=== PATIENT | female | born 1970 | race Caucasian/White ===

== ENCOUNTER 2017-01-24 16:38 | Inpatient (IN) | payer BC ==
[~2017-01-24] VITALS: Ht 172.7 cm; Wt 74.5 kg
[2017-01-24 16:42] VITALS: BP 162/93; PULSE 97; RESP 20; TEMP 97.8; O2SAT 100
--- NOTE | 2017-01-24 16:58 | PD ---
HPI Chief Complaint: Back/ Neck Pain or Injury Time Seen by Provider: 16:48 Travel History International Travel<30 days: No Contact w/Intl Traveler<30days: No Traveled to known affect area: No History of Present Illness HPI The patient is a 46-year-old female who presents emergency department for back pain. Patient has a history of increasing back pain and left lower aspect that radiates down the left lower extremity to left great toe. The patient has been treated on an outpatient basis with a Medrol Dosepak 2, finished her last Medrol Dosepak several days ago. However, she has increasing left lower extremity pain, now notes weakness to left lower extremity with difficulty ambulating. The patient also notes intermittent episodes of urinary incontinence, she denies any diarrhea or fecal incontinence. The patient had an MRI performed an outpatient basis which revealed a herniated disc with some nerve root compression and compression on the thecal sac. The patient was referred to the emergency department for further evaluation by neurosurgery. The patient's after venous he plans on possible surgery tomorrow morning. He requests the patient be admitted to the medical service and nothing by mouth after midnight. The patient denies any right lower extremity weakness or numbness. She denies any nausea, vomiting, or abdominal pain. PFSH Past Medical History Narrative Medical Asthma Respiratory: Yes (ASTHMA) Past Surgical History Narrative Surgical section Social History Tobacco Use: No Allergies-Medications (Allergen,Severity, Reaction): Coded Allergies: No Known Allergies (Unverified , 01/24/17) Reported Meds & Prescriptions Reported Meds & Active Scripts Active Reported Ventolin Hfa 18 GM Inh (Albuterol Sulfate) 90 Mcg/Act Aer 1 Puff INH Q4H PRN Review of Systems Except as stated in HPI: all other systems reviewed are Neg Genitourinary: Positive: Incontinence Musculoskeletal: Positive: Weakness Neurologic: Positive: Paresthesia, Sensory Disturbance Physical Exam Narrative GENERAL: Awake, alert, pleasant 46-year-old female who appears her stated age and appears in moderate discomfort. SKIN: Focused skin assessment warm/dry. HEAD: Atraumatic. Normocephalic. EYES: Pupils equal and round. No scleral icterus. No injection or drainage. ENT: No nasal bleeding or discharge. Mucous membranes pink and moist. NECK: Trachea midline. No JVD. CARDIOVASCULAR: Regular rate and rhythm. No murmur appreciated. RESPIRATORY: No accessory muscle use. Clear to auscultation. Breath sounds equal bilaterally. GASTROINTESTINAL: Abdomen soft, non-tender, nondistended. Back: No CVA tenderness. MUSCULOSKELETAL: No obvious deformities. Mild weakness noted with flexion of the hip, extension of the knee, plantar flexion, dorsiflexion, and flexion the left great toe when compared to the right. Positive distal pulses. NEUROLOGICAL: Awake and alert. No obvious cranial nerve deficits. Motor grossly within normal limits. Normal speech. Knee DTRs are 2+ and symmetric. Ankle DTRs are 2+ and symmetric. No clonus. Babinski downward. Sensation is symmetric bilaterally. PSYCHIATRIC: Appropriate mood and affect; insight and judgment normal. Data Data Last Documented VS Vital Signs Date Time Temp Pulse Resp B/P Pulse Ox O2 Delivery O2 Flow Rate FiO2 01/24/17 16:55 20 01/24/17 16:42 97.8 97 162/93 100 Room Air Orders Complete Blood Count With Diff (01/24/17 16:58) Basic Metabolic Panel (Bmp) (01/24/17 16:58) Act Partial Throm Time (Ptt) (01/24/17 16:58) Prothrombin Time / Inr (Pt) (01/24/17 16:58) Urinalysis - C+S If Indicated (01/24/17 16:58) Electrocardiogram (01/24/17 ) Morphine Inj (Morphine Inj) (01/24/17 17:00) Ondansetron Inj (Zofran Inj) (01/24/17 17:00) Ns + Kcl 20 Meq Inj (Ns + Kcl 20 Meq Inj (01/24/17 17:00) Type And Screen (01/24/17 17:03) Admit To Inpatient (01/24/17 ) Code Status (01/24/17 17:05) Vital Signs (Adult) Q4H (01/24/17 17:05) Activity Bed Rest With Brp (01/24/17 17:05) Sodium Chloride 0.9% Flush (Ns Flush) (01/24/17 17:15) Sodium Chloride 0.9% Flush (Ns Flush) (01/24/17 21:00) Acetaminophen (Tylenol) (01/24/17 18:00) Ondansetron Inj (Zofran Inj) (01/24/17 18:00) Basic Metabolic Panel (Bmp) (01/25/17 06:00) Comprehensive Metabolic Panel (01/25/17 06:00) Pt Request For Service (01/24/17 17:05) Case Management Consult (01/24/17 17:05) Scd Bilateral/Knee High JENNIFER.BID (01/24/17 17:05) Win Bilateral/Knee High JENNIFER.QSHIFT (01/24/17 17:05) Acetaminophen (Tylenol) (01/24/17 18:00) Acetamin-Hydrocod 325-5 Mg ([place] 5-325 (01/24/17 18:00) Acetamin-Hydrocod 325-10 Mg ([place] 10-32 (01/24/17 18:00) Hydromorphone Pf Inj (Dilaudid Pf Inj) (01/24/17 18:00) Naloxone Inj (Narcan Inj) (01/24/17 17:15) Inpatient Certification (01/24/17 ) Dexamethasone Inj (Decadron Inj) (01/24/17 21:00) Albuterol-Ipratropium Neb (Duoneb Neb) (01/24/17 18:00) Enalaprilat Inj (Vasotec Inj) (01/24/17 18:00) Diet Heart Healthy (01/24/17 Dinner) Consult Neurosurgery (01/24/17 ) Admit Order (Ed Use Only) (01/24/17 17:21) Labs Laboratory Tests Test 01/24/17 01/24/17 17:00 17:10 Blood Type O NEGATIVE Antibody Screen NEGATIVE Blood Bank Comment White Blood Count 9.9 TH/MM3 Red Blood Count 4.44 MIL/MM3 Hemoglobin 13.1 GM/DL Hematocrit 39.9 % Mean Corpuscular Volume 89.8 FL Mean Corpuscular Hemoglobin 29.4 PG Mean Corpuscular Hemoglobin 32.7 % Concent Red Cell Distribution Width 12.9 % Platelet Count 259 TH/MM3 Mean Platelet Volume 9.9 FL Neutrophils (%) (Auto) 67.2 % Lymphocytes (%) (Auto) 20.4 % Monocytes (%) (Auto) 7.2 % Eosinophils (%) (Auto) 4.6 % Basophils (%) (Auto) 0.6 % Neutrophils # (Auto) 6.7 TH/MM3 Lymphocytes # (Auto) 2.0 TH/MM3 Monocytes # (Auto) 0.7 TH/MM3 Eosinophils # (Auto) 0.5 TH/MM3 Basophils # (Auto) 0.1 TH/MM3 CBC Comment DIFF FINAL Differential Comment Prothrombin Time 11.0 SEC Prothromb Time International 1.0 RATIO Ratio Activated Partial 25.9 SEC Thromboplast Time Sodium Level 138 MEQ/L Potassium Level 3.9 MEQ/L Chloride Level 103 MEQ/L Carbon Dioxide Level 26.2 MEQ/L Anion Gap 9 MEQ/L Blood Urea Nitrogen 11 MG/DL Creatinine 0.75 MG/DL Estimat Glomerular Filtration 83 ML/MIN Rate Random Glucose 103 MG/DL Calcium Level 9.0 MG/DL [facility] Medical Decision Making Medical Screen Exam Complete: Yes Emergency Medical Condition: Yes Medical Record Reviewed: Yes Interpretation(s) MRI of the lumbar spine performed on January 17, 2017 reveals degenerative changes which are most significant at the level of L4-L5 with there is a focal posterior foraminal disc extrusion causing mass effect upon the adjacent thecal sac and contributing to a mild narrowing of the left neural foramina. MRI the left hip reveals unremarkable exam except for asymmetry in the size of the performance muscles. There is no significant intra-muscular fatty atrophy on the right side and no obvious edema on the left but there is asymmetric size. It is of uncertain etiology. Minimal increased T2 signal in a longitudinal fashion within the lateral aspect of the iliopsoas muscle could be a minimal sprain. Laboratory Tests Test 01/24/17 01/24/17 17:00 17:10 Blood Type O NEGATIVE Antibody Screen NEGATIVE Blood Bank Comment White Blood Count 9.9 TH/MM3 Red Blood Count 4.44 MIL/MM3 Hemoglobin 13.1 GM/DL Hematocrit 39.9 % Mean Corpuscular Volume 89.8 FL Mean Corpuscular Hemoglobin 29.4 PG Mean Corpuscular Hemoglobin 32.7 % Concent Red Cell Distribution Width 12.9 % Platelet Count 259 TH/MM3 Mean Platelet Volume 9.9 FL Neutrophils (%) (Auto) 67.2 % Lymphocytes (%) (Auto) 20.4 % Monocytes (%) (Auto) 7.2 % Eosinophils (%) (Auto) 4.6 % Basophils (%) (Auto) 0.6 % Neutrophils # (Auto) 6.7 TH/MM3 Lymphocytes # (Auto) 2.0 TH/MM3 Monocytes # (Auto) 0.7 TH/MM3 Eosinophils # (Auto) 0.5 TH/MM3 Basophils # (Auto) 0.1 TH/MM3 CBC Comment DIFF FINAL Differential Comment Prothrombin Time 11.0 SEC Prothromb Time International 1.0 RATIO Ratio Activated Partial 25.9 SEC Thromboplast Time Sodium Level 138 MEQ/L Potassium Level 3.9 MEQ/L Chloride Level 103 MEQ/L Carbon Dioxide Level 26.2 MEQ/L Anion Gap 9 MEQ/L Blood Urea Nitrogen 11 MG/DL Creatinine 0.75 MG/DL Estimat Glomerular Filtration 83 ML/MIN Rate Random Glucose 103 MG/DL Calcium Level 9.0 MG/DL Differential Diagnosis Differential diagnosis includes herniated disc, cauda equina, radiculopathy, spinal stenosis. Narrative Course IV was established, labs are drawn and sent, the patient was placed on cardiac telemetry monitoring and continuous pulse oximetry monitoring. The patient was administered morphine, Zofran, placed on IV fluids. I discussed the patient with Dr. Bella and the on-call medical service, Dr. Ramirez. The patient will be kept nothing by mouth, consult will be placed to neurosurgery, the patient's pain will be addressed. The patient will be admitted. The patient has failed outpatient therapy with Medrol Dosepak 2. Physician Communication Physician Communication I discussed the patient with Dr. Bella and Dr. Ramirez. The patient has failed outpatient therapy with Medrol Dosepak 2 and will be admitted. Diagnosis Primary Impression: Lumbar back pain with radiculopathy affecting left lower extremity Condition: Stable Omi Soriano MD January 24, 2017 16:58
[2017-01-24] MEDS ORDERED: ONDANSETRON HCL 4 MG/2 ML VIAL IV PUSH ONE (17:00)
[2017-01-24] MEDS ORDERED: MORPHINE SULFATE 4 MG/ML INJ IV PUSH ONE (17:00)
[2017-01-24] MEDS ORDERED: SODIUM CHLORIDE 0.9% FLUSH 10 ML FLUSH IV FLUSH PRN (17:15)
[2017-01-24] MEDS ORDERED: NALOXONE HCL 0.4 MG/ML AMP IV PRN (17:15)
[2017-01-24] MEDS ORDERED: VENTAER INH (17:24)
[2017-01-24] MEDS: NS + KCL 20 MEQ INJ 1,000 ML IV SCH (17:37)
--- NOTE | 2017-01-24 17:47 | HHI.HP ---
[facility] Service [facility] Primary Care Physician Non-Staff Admission Diagnosis radiculopathy Diagnoses: (1) Lumbar back pain with radiculopathy affecting left lower extremity (2) Elevated BP without diagnosis of hypertension Chief Complaint: Low back pain associated as well with left lower extremity Travel History International Travel<30 Days: No Contact w/Intl Traveler <30 Da: No Traveled to Known Affected Are: No History of Present Illness 46-year-old female with a history of asthma come to the ED for evaluation of worsening low back pain with radiation to left lower extremity. Patient was recently diagnosed with acute low back pain in November 2016 and denies any trauma , for which she was treated conservatively with muscle relaxant and physical therapy however without any significant improvement. Patient was also treated with Medrol Dosepak x 2 and completed the treatment several day ago without any improvement.She reports increasing LLE pain associated with difficulty with ambulating as well as intermittent urinary incontinence over the past 48HRS. The pain is currently rated 10/10 in intensity. She was sent by her PCP for a MRI on 01/17/17 which revealed a herniated disc with some nerve root compression and compression on the thecal sac. Review of Systems Other 12 systems reviewed and are negative except for the ones mentioned in the history of present illness Past Family Social History Past Medical History Asthma Past Surgical History 1 Reported Medications Medrol pack Allergies: Coded Allergies: No Known Allergies (Unverified , 01/24/17) Family History Father had diabetes type 2 Mother had CHF Social History Patient denies tobacco alcohol or illicit drug intake Physical Exam Vital Signs Vital Signs Date Time Temp Pulse Resp B/P Pulse Ox O2 Delivery O2 Flow Rate FiO2 01/24/17 16:55 20 01/24/17 16:42 97.8 97 20 162/93 100 Room Air Physical Exam GENERAL: This is a well-nourished, well-developed patient, in no apparent distress. SKIN: No rashes, ecchymoses or lesions. Cool and dry. HEAD: Atraumatic. Normocephalic. No temporal or scalp tenderness. EYES: Pupils equal round and reactive. Extraocular motions intact. No scleral icterus. No injection or drainage. ENT: Nose without bleeding, purulent drainage or septal hematoma. Throat without erythema, tonsillar hypertrophy or exudate. Uvula midline. Airway patent. NECK: Trachea midline. No JVD or lymphadenopathy. Supple, nontender, no meningeal signs. CARDIOVASCULAR: Regular rate and rhythm without murmurs, gallops, or rubs. RESPIRATORY: Clear to auscultation. Breath sounds equal bilaterally. No wheezes , rales, or rhonchi. GASTROINTESTINAL: Abdomen soft, non-tender, nondistended. No hepato-splenomegaly , or palpable masses. No guarding. MUSCULOSKELETAL: Extremities without clubbing, cyanosis, or edema. No joint tenderness, effusion, or edema noted. No calf tenderness. Negative Homans sign bilaterally.Back TTP; Limited ROM LLE NEUROLOGICAL: Awake and alert. Cranial nerves II through XII intact. Motor and sensory grossly within normal limits. Five out of 5 muscle strength in all muscle groups. Normal speech. Assessment and Plan Problem List: (1) Lumbar back pain with radiculopathy affecting left lower extremity ICD Code: M54.17 Status: Acute (2) Elevated BP without diagnosis of hypertension ICD Code: R03.0 Status: Acute Assessment and Plan 46-year-old female with Lumbar back pain with radiculopathy affecting left lower extremity Outside MRI Lumbar 01/17/17 which revealed a herniated disc with some nerve root compression and compression on the thecal sac Neurosurgery consultation and plan for possible laminectomy tomorrow 01/25/17 Pain management accordingly, nothing by mouth after midnight Start Decadron 4 mg IV every 6 hourly Elevated BP without diagnosis of hypertension Start Vasotec when necessary History of asthma, chronic No exacerbation and treat with DuoNeb when necessary DVT prophylaxis: Bilateral SCDs Code Status Full code Discussed Condition With Patient, ED physician Physician Certification 2 Midnight Certification Type: Admission for Inpatient Services Order for Inpatient Services The services are ordered in accordance with Medicare regulations or non- Medicare payer requirements, as applicable. In the case of services not specified as inpatient-only, they are appropriately provided as inpatient services in accordance with the 2-midnight benchmark. Estimated LOS (days): 2 days is the estimated time the patient will need to remain in the hospital, assuming treatment plan goals are met and no additional complications. Post-Hospital Plan: Not yet determined Maged Ramirez MD January 24, 2017 17:47
[2017-01-24 17:49] LABS: AUTOMATED NEUTROPHIL # 6.7 TH/MM3 (1.8-7.7); BASOPHIL # 0.1 TH/MM3 (0-0.2); BASOPHIL % 0.6 % (0.0-2.0); EOSINOPHIL # 0.5 TH/MM3 (0-0.4); EOSINOPHIL % 4.6 % (0.0-4.0); HEMATOCRIT 39.9 % (35.0-46.0); HEMO FLAGS DIFF FINAL; LYMPH % 20.4 % (9.0-44.0); MEAN CELL VOLUME 89.8 FL (80.0-100.0); MEAN CORPUSCULAR HEMOGLOBIN 29.4 PG (27.0-34.0); MEAN CORPUSCULAR HGB CONC 32.7 % (32.0-36.0); MONO % 7.2 % (0.0-8.0); NEUT % 67.2 % (16.0-70.0); PLATELET COUNT 259 TH/MM3 (150-450); RED BLOOD COUNT 4.44 MIL/MM3 (4.00-5.30); RED CELL DISTRIBUTION WIDTH 12.9 % (11.6-17.2); WHITE BLOOD COUNT 9.9 TH/MM3 (4.0-11.0)
[2017-01-24 17:53] LABS: APTT (PATIENT) 25.9 SEC (24.3-30.1)
[2017-01-24] MEDS ORDERED: ONDANSETRON HCL 4 MG/2 ML VIAL IVP PRN (18:00)
[2017-01-24] MEDS ORDERED: ACETAMINOPHEN/HYDROcodone 325 MG/10 MG TAB PO PRN (18:00)
[2017-01-24] MEDS ORDERED: RESP: ALBUTEROL 2.5 MG/IPRATROPIUM 0.5 MG NEB (PRN) NEB (18:00)
[2017-01-24] MEDS ORDERED: ACETAMINOPHEN 325 MG TAB PO PRN ×2 (18:00)
[2017-01-24] MEDS ORDERED: DOCUSATE SODIUM 50 MG/SENNA 8.6 MG TAB PO PRN (18:00)
[2017-01-24] MEDS ORDERED: ENALAPRILAT 1.25 MG/ML VIAL IV PUSH PRN (18:00)
[2017-01-24] MEDS ORDERED: ACETAMINOPHEN/HYDROcodone 325 MG/5 MG TAB PO PRN (18:00)
[2017-01-24] MEDS ORDERED: HYDROmorphone HCL PF 1 MG/ML VIAL IV PRN (18:00)
[2017-01-24 18:14] LABS: BICARBONATE 26.2 MEQ/L (21.0-32.0); POTASSIUM 3.9 MEQ/L (3.5-5.1)
[2017-01-24 19:15] VITALS: BP 139/95; PULSE 105; RESP 18; TEMP 96.9; O2SAT 97
[2017-01-24] MEDS: DEXAMETHASONE SOD PHOS 4 MG/ML VIAL IV PUSH SCH (20:01)
[2017-01-24] MEDS ORDERED: SODIUM CHLORIDE 0.9% FLUSH 10 ML FLUSH IV FLUSH SCH (21:00)
[2017-01-24] MEDS ORDERED: LORazepam 2 MG/ML VIAL IV PUSH ONE (22:00)
[2017-01-24 22:28] LABS: BACTERIA, URINE OCC /hpf; BLOOD, URINE NEG (NEG); COMMENT (UR) CULT NOT INDICATED; CULTURE IF INDICATED CULT NOT INDICATED; GLUCOSE,URINE NEG (NEG); KETONE, URINE NEG (NEG); MUCUS URINE FEW /lpf (OCC); NITRITE,URINE NEG (NEG); PH, URINE 5.5 (5.0-8.5); SQUAMOUS EPITHELIAL CELL URINE 2 /hpf (0-5); URINE COLOR YELLOW (YELLW/STRAW)
[2017-01-24] MEDS: MORPHINE SULFATE 4 MG/ML INJ IV PUSH PRN (22:37)
[2017-01-25] MEDS: DEXAMETHASONE SOD PHOS 4 MG/ML VIAL IV PUSH SCH ×4 (00:52→17:33)
[2017-01-25] MEDS: MORPHINE SULFATE 4 MG/ML INJ IV PUSH PRN (03:58)
[2017-01-25 04:01] VITALS: BP 134/88; PULSE 99; RESP 18; TEMP 97.9; O2SAT 98
[2017-01-25] MEDS: NS + KCL 20 MEQ INJ 1,000 ML IV SCH ×2 (04:07→15:40)
[2017-01-25] MEDS ORDERED: METOPROLOL TARTRATE 25 MG TAB PO PRN (04:30)
[2017-01-25] MEDS ORDERED: LACTATED RINGER'S 1000 ML IV PRN (04:30)
[2017-01-25] MEDS ORDERED: POVIDONE IODINE 5% (ANTISEPSIS KIT) 4 APPLICATIONS EACH NARE PRN (04:30)
[2017-01-25] MEDS ORDERED: INSULIN HUMAN REGULAR 1,000 UNITS/10 ML VIAL SQ PRN (04:30)
[2017-01-25] MEDS ORDERED: CHLORHEXIDINE GLUCONATE 2 % 1 PACK (2 CLOTHS) TOPICAL PRN (04:30)
[2017-01-25] MEDS ORDERED: SODIUM CHLORID 0.9% 500 ML IV PRN (04:30)
[2017-01-25] MEDS ORDERED: methylPREDNISolone ACETATE 40 MG/ML VIAL ONE (07:25)
[2017-01-25] MEDS ORDERED: THROMBIN (TOPICAL) 5,000 UNIT VIAL ONE (07:25)
[2017-01-25] MEDS ORDERED: GENTAMICIN SULFATE 80 MG/2 ML VIAL ONE (07:25)
[2017-01-25] MEDS ORDERED: ceFAZolin 2 GM PREMIX 50 ML ONE (07:25)
[2017-01-25] MEDS ORDERED: GELFOAM SIZE 100 ONE (07:25)
[2017-01-25] MEDS ORDERED: BUPIVACAINE/EPINEPHRINE 0.5% 50 ML VIAL ONE (07:26)
[2017-01-25 07:56] LABS: ALKALINE PHOSPHATASE 48 U/L (45-117); ALT (GPT) 20 U/L (10-53); ANION GAP 7 MEQ/L (5-15); AST (GOT) 13 U/L (15-37); BICARBONATE 27.4 MEQ/L (21.0-32.0); BLOOD UREA NITROGEN 12 MG/DL (7-18); CHLORIDE 103 MEQ/L (98-107); GLOMERULAR FILTRATION RATE 88 ML/MIN (>89); POTASSIUM 4.5 MEQ/L (3.5-5.1); SODIUM (NA) 137 MEQ/L (136-145); TOTAL BILIRUBIN ADULT 0.6 MG/DL (0.2-1.0)
[2017-01-25 08:00] VITALS: BP 157/95; PULSE 88; RESP 19; TEMP 95.6; O2SAT 100
--- NOTE | 2017-01-25 09:26 | HHI.PR ---
Subjective Remarks Follow-up lumbar radiculopathy affecting lower extremity 01/25/17-patient seen and examined, reports some improvement of left lower extremity. Currently nothing by mouth pending laminectomy today by neurosurgery. Objective Vitals Vital Signs Date Time Temp Pulse Resp B/P Pulse Ox O2 Delivery O2 Flow Rate FiO2 01/25/17 08:00 95.6 88 19 157/95 100 01/25/17 04:04 18 01/25/17 04:01 97.9 99 18 134/88 98 01/24/17 19:15 96.9 105 18 139/95 97 01/24/17 19:00 18 01/24/17 16:55 20 01/24/17 16:42 97.8 97 20 162/93 100 Room Air I/O 01/24/17 01/24/17 01/24/17 01/25/17 01/25/17 01/25/17 07:00 15:00 23:00 07:00 15:00 23:00 Intake Total 453 ml 842 ml Balance 453 ml 842 ml Intake Oral 240 ml 240 ml IV Total 213 ml 602 ml # Voids 1 2 # Bowel Movements 0 0 Result Diagram: 01/24/17 1710 01/25/17 0539 Objective Remarks GENERAL: NAD SKIN: Warm and dry. HEAD: Normocephalic. EYES: No scleral icterus. No injection or drainage. NECK: Supple, trachea midline. No JVD or lymphadenopathy. CARDIOVASCULAR: Regular rate and rhythm without murmurs, gallops, or rubs. RESPIRATORY: Breath sounds equal bilaterally. No accessory muscle use. GASTROINTESTINAL: Abdomen soft, non-tender, nondistended. MUSCULOSKELETAL: No cyanosis, or edema. limited ROM LLE BACK: Nontender without obvious deformity. No CVA tenderness. A/P Problem List: (1) Lumbar back pain with radiculopathy affecting left lower extremity ICD Code: M54.17 Status: Acute (2) Elevated BP without diagnosis of hypertension ICD Code: R03.0 Status: Acute Assessment and Plan 46-year-old female with Lumbar back pain with radiculopathy affecting left lower extremity Outside MRI Lumbar 01/17/17 which revealed a herniated disc with some nerve root compression and compression on the thecal sac Neurosurgery consultation appreciated and plan for laminectomy today 01/25/17 Pain management accordingly, nothing by mouth, IV fluid Continue Decadron 4 mg IV every 6 hourly Elevated BP without diagnosis of hypertension Continue Vasotec when necessary History of asthma, chronic No exacerbation and treat with DuoNeb when necessary DVT prophylaxis: Bilateral SCDs Maged Ramirez MD January 25, 2017 09:26
--- NOTE | 2017-01-25 09:26 | HHI.HP ---
HPI Service Neurosurgery Primary Care Physician Non-Staff Chief Complaint: Left foot numbness and weakness History of Present Illness This is a 46-year-old female with a history of asthma admitted from [place] ED for evaluation of worsening low back pain with radiation to left lower extremity. She developed back pain 3 months ago after vigorous excercising, and was diagnosed with a disk herniation.She denies any trauma. She was treated conservatively with muscle relaxant and physical therapy however without any significant improvement. Patient was also treated with Medrol Dosepak x 2 and completed the treatment several day ago without any improvement.She reports increasing LLE pain associated with difficulty with ambulating as her left foot has becoma weak, as well as intermittent urinary incontinence over the past 48HRS. The pain is currently rated 10/10 in intensity. She was sent by her PCP for a MRI on 01/17/17 which revealed a very large herniated disc with a disk exrtrusion, and nerve root compression and compression on the thecal sac. Neurosurgical consultation was requested. Past Family Social History Allergies: Coded Allergies: No Known Allergies (Unverified , 01/24/17) Past Medical History Asthma Past Surgical History 1 Reported Medications Medrol pack Active Ordered Medications Current Medications Morphine Sulfate (Morphine Inj) 4 mg ONCE ONCE IV PUSH Last administered on 17:11; Start 01/24/17 at 17:00; Stop 01/24/17 at 17:01; Status DC Ondansetron HCl 4 mg 4 mg ONCE ONCE IV PUSH Last administered on 01/24/17 17: 09; Start 01/24/17 at 17:00; Stop 01/24/17 at 17:01; Status DC Potassium Chloride/Sodium Chloride (NS + KCl 20 Meq Inj) 1,000 ml @ 100 mls/hr Q10H IV Last administered on 01/25/17 04:07; Start 01/24/17 at 17:00 Sodium Chloride (NS Flush) 2 ml UNSCH PRN IV FLUSH FLUSH AFTER USING IV ACCESS ; Start 01/24/17 at 17:15 Sodium Chloride (NS Flush) 2 ml BID IV FLUSH ; Start 01/24/17 at 21:00 Acetaminophen (Tylenol) 650 mg Q4H PRN PO TEMP > 100.4; Start 01/24/17 at 18:00 Ondansetron HCl (Zofran Inj) 4 mg Q6H PRN IVP NAUSEA OR VOMITING Last administered on 01/24/17 19:52; Start 01/24/17 at 18:00 Acetaminophen (Tylenol) 650 mg Q6H PRN PO PAIN SCALE 1 TO 2; Start 01/24/17 at 18:00 Acetaminophen/ Hydrocodone Bitart (Beatrice 5-325 Mg) 1 tab Q4H PRN PO PAIN SCALE 3 TO 5; Start 01/24/17 at 18:00 Acetaminophen/ Hydrocodone Bitart (Beatrice 10-325 Mg) 1 tab Q4H PRN PO PAIN SCALE 6 TO 10; Start 01/24/17 at 18:00 Hydromorphone HCl (Dilaudid Pf Inj) 1 mg Q3H PRN IV BREAKTHROUGH PAIN Last administered on 01/24/17 18:26; Start 01/24/17 at 18:00; Stop 01/24/17 at 21:11 ; Status DC Naloxone HCl (Narcan Inj) 0.4 mg UNSCH PRN IV SEE LABEL COMMENTS; Start at 17:15 Dexamethasone Sodium Phosphate (Decadron Inj) 4 mg Q6HR IV PUSH Last administered on 01/25/17 06:08; Start 01/24/17 at 21:00 Albuterol/ Ipratropium (Duoneb Neb) 1 ampule Q2HR NEB PRN NEB SHORTNESS OF BREATH; Start 01/24/17 at 18:00 Enalaprilat (Vasotec Inj) 1.25 mg Q6H PRN IV PUSH SBP>160, DBP>90; Start 01/24 at 18:00 Senna/Docusate Sodium (Ann-Marie-Colace) 1 tab BID PRN PO CONSTIPATION; Start at 18:00 Morphine Sulfate (Morphine Inj) 2 mg Q3H PRN IV PUSH breakthrough pain or if npo Last administered on 01/25/17 03:58; Start 01/24/17 at 21:15 Lorazepam 1 mg 1 mg ONCE ONCE IV PUSH Last administered on 01/24/17 23:23; Start 01/24/17 at 22:00; Stop 01/24/17 at 22:01; Status DC Lactated Ringer's 1,000 ml @ 30 mls/hr Q24H PRN IV SEE LABEL COMMENTS; Start at 04:30; Stop 01/28/17 at 04:29 Sodium Chloride (NS 500 ml Inj) 500 ml @ 30 mls/hr [id number] PRN IV SEE LABEL COMMENTS; Start 01/25/17 at 04:30; Stop 01/28/17 at 04:29 Metoprolol Tartrate (Lopressor) 25 mg PROJECT MANAGER RETAIL PRN PO SEE LABEL COMMENTS; Start 01/25/17 at 04:30; Stop 01/28/17 at 04:29 Povidone Iodine (Betadine 5% Antisepsis Kit) 1 applic PROJECT MANAGER RETAIL PRN EACH NARE SEE LABEL COMMENTS; Start 01/25/17 at 04:30; Stop 01/28/17 at 04:29 Chlorhexidine Gluconate (Chlorhexidine 2% Cloth) 3 pack PROJECT MANAGER RETAIL PRN TOPICAL SEE LABEL COMMENTS; Start 01/25/17 at 04:30; Stop 01/28/17 at 04:29 Insulin Human Regular (NovoLIN R INJ) See Protocol Table ... PROJECT MANAGER RETAIL PRN SQ SEE PROTOCOL TABLE; Start 01/25/17 at 04:30; Stop 01/28/17 at 04:29 Thrombin 72821 units 10,000 units STK-MED ONCE .ROUTE ; Start 01/25/17 at 07:25 ; Stop 01/25/17 at 07:26; Status DC Cefazolin Sodium/ Dextrose (Ancef 2 Gm Premix) 50 ml @ As Directed STK-MED ONCE .ROUTE ; Start 01/25/17 at 07:25; Stop 01/25/17 at 07:26; Status DC Methylprednisolone Acetate (Depo-Medrol Inj) 40 mg STK-MED ONCE .ROUTE ; Start 01/25/17 at 07:25; Stop 01/25/17 at 07:26; Status DC Gelatin (Gelfoam 100 Top) 1 foam STK-MED ONCE .ROUTE ; Start 01/25/17 at 07:25; Stop 01/25/17 at 07:26; Status DC Gentamicin Sulfate (Gentamicin Inj) 240 mg STK-MED ONCE .ROUTE ; Start 01/25/17 at 07:25; Stop 01/25/17 at 07:26; Status DC Bupivacaine HCl/ Epinephrine Bitart (Sensorcaine-Epi 0.5% 50 ml Inj) 50 ml STK- MED ONCE .ROUTE ; Start 01/25/17 at 07:26; Stop 01/25/17 at 07:27; Status DC Family History Father had diabetes type 2 Mother had CHF Social History Patient denies tobacco alcohol or illicit drug intake Physical Exam Vital Signs Vital Signs Date Time Temp Pulse Resp B/P Pulse Ox O2 Delivery O2 Flow Rate FiO2 01/25/17 04:04 18 01/25/17 04:01 97.9 99 18 134/88 98 01/24/17 19:15 96.9 105 18 139/95 97 01/24/17 19:00 18 01/24/17 16:55 20 01/24/17 16:42 97.8 97 20 162/93 100 Room Air Laboratory Laboratory Tests Test 01/24/17 01/24/17 01/24/17 01/25/17 17:00 17:10 21:17 05:39 Blood Type O NEGATIVE Antibody Screen NEGATIVE Blood Bank Comment White Blood Count 9.9 Red Blood Count 4.44 Hemoglobin 13.1 Hematocrit 39.9 Mean Corpuscular Volume 89.8 Mean Corpuscular Hemoglobin 29.4 Mean Corpuscular Hemoglobin 32.7 Concent Red Cell Distribution Width 12.9 Platelet Count 259 Mean Platelet Volume 9.9 Neutrophils (%) (Auto) 67.2 Lymphocytes (%) (Auto) 20.4 Monocytes (%) (Auto) 7.2 Eosinophils (%) (Auto) 4.6 Basophils (%) (Auto) 0.6 Neutrophils # (Auto) 6.7 Lymphocytes # (Auto) 2.0 Monocytes # (Auto) 0.7 Eosinophils # (Auto) 0.5 Basophils # (Auto) 0.1 CBC Comment DIFF FINAL Differential Comment Prothrombin Time 11.0 Prothromb Time International 1.0 Ratio Activated Partial 25.9 Thromboplast Time Sodium Level 138 137 Potassium Level 3.9 4.5 Chloride Level 103 103 Carbon Dioxide Level 26.2 27.4 Anion Gap 9 7 Blood Urea Nitrogen 11 12 Creatinine 0.75 0.71 Estimat Glomerular Filtration 83 88 Rate Random Glucose 103 120 Calcium Level 9.0 9.1 Urine Color YELLOW Urine Turbidity CLEAR Urine pH 5.5 Urine Specific Sugar Run 1.012 Urine Protein NEG Urine Glucose (UA) NEG Urine Ketones NEG Urine Occult Blood NEG Urine Nitrite NEG Urine Bilirubin NEG Urine Urobilinogen LESS THAN 2.0 Urine Leukocyte Esterase NEG Urine WBC LESS THAN 1 Urine Squamous Epithelial 2 Cells Urine Bacteria OCC Urine Mucus FEW Microscopic Urinalysis Comment CULT NOT INDICATED Total Bilirubin 0.6 Aspartate Amino Transf 13 (AST/SGOT) Alanine Aminotransferase 20 (ALT/SGPT) Alkaline Phosphatase 48 Total Protein 7.5 Albumin 3.9 Result Diagram: 01/24/17 1710 01/25/17 0539 Imaging [facility] 01[facility]17 which revealed a large herniated disc with extrusion and nerve root compression and compression on the thecal sac Assessment and Plan Assessment and Plan (1) Lumbar back pain with radiculopathy affecting left lower extremity ICD Code: M54.17 Status: Acute (2) Elevated BP without diagnosis of hypertension ICD Code: R03.0 Status: Acute Attending Statement I had an extensive discussion with Ms Whitfield regarding her clinical and radiological findings. She suffers from extremely severe pain in his lumbosacral region with patricia evidence of a left L5 radiculopathy, which correlates with her large disk extrusion. Her MRI findings correlate with her clinical symptoms. She has failed to improve with conservative treatment including physical therapy, exercises, antiinflammatories and muscle relaxants, as well as steroids. She understands that a surgical procedure should be considered as a last resort. Unfortunately, her symptoms are getting worse and continue to affect her activities of daily living. I discussed with her the alternative of continuing nonsurgical treatment with further pain management and physical therapy, analgesics, and antiimflammatories , versus consideration to a surgical decompression with a left L4-5 hemilaminectomy, mesoofacetectomy, foraminotomy with microsurgical resection of the disk. . Using the patients radiologic studies, anatomical model(s) I have discussed the details of the surgical decompression including the [id number] procedure, its indications, alternatives, risks, and potential complications. Risks and potential complications include, but are not limited to, infection, blood loss, CSF leak, partial or complete loss of sight in one or both eyes, paresis, paralysis, permanent pain, hoarseness or difficulty swallowing, loss of bowel or bladder function, complications from anesthesia, blood clot, stroke , myocardial infarction, or even . Respiratory. pulmonary toilette, nasotracheal suction, and breathing treatments with nebulizers. PT and OT eval Nutrition. NPO Renal. monitor closely urine output, BUN and creatinine Endocrine. Monitor serial Acu checks and SSI for tight control ID monitor for signs of infection Protonix for stress ulcer prophylaxis Win hosángela and SCD's for DVT prophylaxis Chase Bella MD January 25, 2017 09:26
[2017-01-25] MEDS ORDERED: APREPITANT 40 MG CAP ONE (10:43)
[2017-01-25] MEDS ORDERED: FAMOTIDINE 20 MG/2 ML VIAL ONE (10:43)
[2017-01-25] MEDS ORDERED: MIDAZOLAM HCL 2 MG/2 ML VIAL ONE ×2 (12:09→12:26)
[2017-01-25] MEDS ORDERED: fentaNYL CITRATE 250 MCG/5 ML AMP ONE (12:26)
[2017-01-25] MEDS ORDERED: ARTIFICIAL TEARS OPTH OINT 3.5 APPLIC/3.5 GM TUBO ONE (12:26)
[2017-01-25] MEDS ORDERED: ACETAMINOPHEN 1000 MG/100 ML VIAL IV ONE (12:27)
[2017-01-25] MEDS ORDERED: VANCOMYCIN HCL 1000 MG VIAL ONE (12:55)
[2017-01-25] MEDS ORDERED: SODIUM CHLOR 0.9% 250 ML INJ 250 ML ONE (12:55)
[2017-01-25] MEDS ORDERED: SODIUM CHLORIDE 0.9% FLUSH 10 ML FLUSH IV FLUSH PRN (13:30)
[2017-01-25] MEDS ORDERED: ACETAMINOPHEN/HYDROcodone 325 MG/10 MG TAB PO PRN ×2 (13:30)
[2017-01-25] MEDS ORDERED: ACETAMINOPHEN 325 MG TAB PO PRN (13:30)
[2017-01-25] MEDS ORDERED: MORPHINE SULFATE 4 MG/ML INJ IV PUSH PRN ×2 (13:30)
--- NOTE | 2017-01-25 14:20 | EKG ---
Date Performed: 01/24/2017 Time Performed: 20:55:25 PTAGE: 46 years EKG: Sinus rhythm POSSIBLE RIGHT VENTRICULAR CONDUCTION DELAY BORDERLINE ECG NO PREVIOUS TRACING DOCTOR: Santo Storey Interpretating Date/Time 01/25/2017 14:17:37
--- NOTE | 2017-01-25 14:20 | EKG ---
Date Performed: 01/25/2017 Time Performed: 08:36:52 PTAGE: 46 years EKG: Sinus rhythm POSSIBLE RIGHT VENTRICULAR CONDUCTION DELAY BORDERLINE ECG PREVIOUS TRACING : 01/24/2017 20.55 Compared to prior tracing no significant change DOCTOR: Santo Storey Interpretating Date/Time 01/25/2017 14:17:32
[2017-01-25] MEDS ORDERED: PROPOFOL 200 MG/20 ML AMP IV ONE (14:25)
[2017-01-25] MEDS ORDERED: ePHEDrine/NS 25 MG/5 ML SYR IV ONE (14:25)
[2017-01-25] MEDS ORDERED: NEOSTIGMINE 3 MG/3 ML SYR IV ONE (14:26)
[2017-01-25] MEDS ORDERED: PHENYLEPH/NS 1000 MCG/10 ML SYR IV ONE (14:26)
[2017-01-25] MEDS ORDERED: ONDANSETRON HCL 4 MG/2 ML VIAL IV PUSH ONE (14:26)
[2017-01-25] MEDS ORDERED: LACTATED RINGER'S 1000 ML INJ 1,000 ML IV ONE (14:26)
[2017-01-25] MEDS ORDERED: DO NOT ADM ANY ANTICOAGULANT DRUGS PRN (15:00)
--- NOTE | 2017-01-25 15:28 | PD.OP ---
Operative Report Date of Surgery: January 25, 2017 Preoperative Diagnosis: L4-5 disk herniation Postoperative Diagnosis: L4-5 disk herniation Procedure: L4-5 hemilaminectomy and microdiscectomy Anesthesia: general Surgeon: Chase Bella Carbide Tool Die Maker(s): Peggy Torres Operation and Findings: INDICATIONS FOR THE SURGICAL PROCEDURE Ms Rose is a 46 year-old female who presented with intractable mechanical back pain and clinical evidence of left L5 lower extremity radiculopathy. She was found to have a large disk herniation and extrusion causing significant stenosis with significant mass effect on the neural structures which correlated with her clinical symptoms. She failed maximum nonsurgical management including multiple modalities of conservative treatment as well as pain management interventions by an interventional pain specialist. A surgical decompression were indicated as a last resort. The [id number] details of the procedure, indications, alternatives, risks and potential complications were fully discussed with the patient. The patient fully understood. All the questions were answered. No guarantees were given. The patient voiced requesting the procedure and signed informed consents. The patient was offered the alternative of delaying the procedure and continuing with nonsurgical management. DETAILS OF THE SURGICAL PROCEDURE After the induction of general anesthesia, endotracheal intubation was performed. A Wylie catheter, bilateral MARIA A hose and sequential compression devices were placed and kept throughout the procedure. The patient was positioned prone on a Fredo table over a Sanchez frame. All pressure points were carefully padded with eggcrate mattress. The eyes were tapped shut after ointment was applied by the anesthesiologist to prevent corneal abrasion. A Steven hugger was placed over the exposed lower body to maintain control of the core body temperature. The lower lumbar region was prepped and draped in the usual sterile fashion. A spinal needle was placed for localization and an x- ray performed with a C-arm. A left paramedian skin incision was made over the spinous processes L4-5 with a #10 blade. Small subcutaneous bleeders were controlled with a bipolar and the dissection was carried out through the lumbar fascia exposing the spinous processes. A subperiosteal dissection was performed with a Castillo elevator and a Bovie over the L4-L5 spinous process lamina and facets on the left side. A microdiscectomy self-retaining retractor was placed on the incision and an x- ray was obtained with an instrument placed underneath the lamina of L4. At this point in the procedure the operating microscope was draped in the usual sterile fashion and brought to the field. The rest of the surgical procedure was performed using microsurgical dissection technique with exception of the closure. Once the level was confirmed, a left hemilaminectomy was performed at L4-L5 using the TPS drill with an AM-8 drill bit. A medial facetectomy was performed and the superior free border of the ligamentum flavum was dissected with a ligament dissector and removed with a thin footplate 2 mm Kerrison The medial facetectomy allowed me to expose the S1 nerve root, which was identified and followed towards its exit in the foramen. Epidural veins located laterally to the dural sac were coagulated with a bipolar and incised with microscissors. Gentle medial retraction of the dural sac allowed inspection of the disc space. The patient had a disc herniation, causing mass effect over the exiting nerve root. The annulus fibrosus of the disc was coagulated with the bipolar and incised with an 11 blade. The extruded disc was carefully dissected from the surrounding tissue and removed with pituitary forceps. Then, a microdiscectomy was carried out in the standard fashion using straight and up-biting pituitary forceps. A good decompression of the dural sac and nerve root was achieved. The exit of the L5 nerve root was inspected for residual disc fragments and hemostasis was secured with the bipolar. The incision was irrigated with a large amount of saline solution. A Valsalva maneuver failed to show any cerebrospinal fluid leak or bleeding. The decompression was assessed again and found to be satisfactory. The incision was then closed in layers. The fascia was closed with 0 Vicryl sutures in an interrupted fashion. The superficial fascia was closed with 0 Vicryl sutures. The fascia was infiltrated with 0.5% Marcaine with epinephrine 1:100,000 dilution. The subcutaneous tissue was irrigated then closed with 0 Vicryl and 3 -0 Vicryl. The skin was closed with 4-0 running subcuticular Vicryl. Dermabond was applied to the skin. A sterile dressing was applied. At the end of the procedure, the sponge, needle and instrument counts were all correct. Estimated blood loss was less than 70 cc. No blood transfusion was given. No intraoperative complications occurred. The patient received prophylactic antibiotics. The patient was then extubated and transferred to the recovery room in stable condition. Chase Bella MD January 25, 2017 15:28
[2017-01-25] MEDS ORDERED: *morphine SULFATE 8 MG/ML PERIprocedure ONLY ONE ×2 (15:30→15:53)
--- NOTE | 2017-01-25 16:46 | RADRPT ---
EXAM DATE/TIME: 01/25/2017 13:09 [facility] COMPARISON: No previous studies available for comparison. INDICATIONS : Level Localization L4,L5. MEDICAL HISTORY : None. SURGICAL HISTORY : None. ENCOUNTER: Initial ACUITY: 1 day PAIN SCORE: Non-responsive. LOCATION: Lumbar spine. FINDINGS: A single magnified C-arm spot view is a lateral projection of the lower lumbar spine. Dorsal skin ret ractors are noted. A metallic probe projects towards the inferior facets of L4-L5. CONCLUSION: Limited image as detailed above. Kevin Brock Jr., MD on January 25, 2017 at 16:43 Board Certified Radiologist. This report was verified electronically.
[2017-01-25 16:55] VITALS: BP 147/92; PULSE 74; RESP 18; TEMP 97; O2SAT 100
[2017-01-25] MEDS ORDERED: HYDR-3535 PO (17:48)
[2017-01-25 20:35] VITALS: BP 139/92; PULSE 90; RESP 17; TEMP 98; O2SAT 98
[2017-01-25] MEDS: SODIUM CHLORIDE 0.9% FLUSH 10 ML FLUSH IV FLUSH SCH (21:00)
[2017-01-25] MEDS: ceFAZolin 2 GM PREMIX 50 ML IV SCH (21:03)
[2017-01-25] MEDS: DOCUSATE SODIUM 100 MG CAP PO SCH (21:04)
[2017-01-26] MEDS: DEXAMETHASONE SOD PHOS 4 MG/ML VIAL IV PUSH SCH ×2 (00:15→05:04)
[2017-01-26 00:22] VITALS: BP 122/70; PULSE 74; RESP 18; TEMP 96.6; O2SAT 98
[2017-01-26] MEDS: NS + KCL 20 MEQ INJ 1,000 ML IV SCH (01:14)
[2017-01-26 04:21] VITALS: BP 106/74; PULSE 91; RESP 18; TEMP 96.4; O2SAT 99
[2017-01-26] MEDS: ceFAZolin 2 GM PREMIX 50 ML IV SCH (05:04)
[2017-01-26 08:00] VITALS: BP 128/88; PULSE 92; RESP 17; TEMP 96.4; O2SAT 100
[2017-01-26] MEDS ORDERED: PANTOPRAZOLE SOD 40 MG DELAYED RELEASE TAB PO SCH (09:00)
--- NOTE | 2017-01-26 09:18 | HHI.PR ---
Subjective Remarks Follow-up lumbar radiculopathy affecting lower extremity 01/25/17-patient seen and examined, reports some improvement of left lower extremity. Currently nothing by mouth pending laminectomy today by neurosurgery. 01/26/17-patient seen and examined, reports significant improvement of low back pain. Denies any acute event overnight. Patient is ready for discharge home Objective Vitals Vital Signs Date Time Temp Pulse Resp B/P Pulse Ox O2 Delivery O2 Flow Rate FiO2 01/26/17 04:21 96.4 91 18 106/74 99 01/26/17 00:22 96.6 74 18 122/70 98 01/25/17 20:35 98.0 90 17 139/92 98 01/25/17 16:55 97.0 74 18 147/92 100 01/25/17 16:15 91 14 150/86 98 Room Air 01/25/17 16:00 90 14 157/91 100 Room Air 01/25/17 15:45 93 14 156/88 100 Room Air 01/25/17 15:30 115 14 153/85 100 Room Air 01/25/17 15:15 102 14 147/81 100 Room Air 01/25/17 15:10 97.4 101 14 145/83 100 Nasal Cannula 2 I/O 01/25/17 01/25/17 01/25/17 01/26/17 01/26/17 01/26/17 07:00 15:00 23:00 07:00 15:00 23:00 Intake Total 842 ml 1730 ml 720 ml Output Total 80 ml Balance 842 ml 1650 ml 720 ml Intake Oral 240 ml 480 ml 720 ml IV Total 602 ml 150 ml Other 1100 ml Output Estimated Blood Loss 80 ml # Voids 2 4 3 3 # Bowel Movements 0 0 0 Result Diagram: 01/24/17 1710 01/25/17 0539 Imaging Last Impressions Lumbar Spine X-Ray 01/25/17 0000 Signed Impressions: Service Date/Time: Wednesday, January 25, 2017 13:09 - CONCLUSION: Limited image as detailed above. Kevin Brock Jr., MD Objective Remarks GENERAL: NAD and sitting in a chair with TLSO brace in place SKIN: Warm and dry. HEAD: Normocephalic. EYES: No scleral icterus. No injection or drainage. NECK: Supple, trachea midline. No JVD or lymphadenopathy. CARDIOVASCULAR: Regular rate and rhythm without murmurs, gallops, or rubs. RESPIRATORY: Breath sounds equal bilaterally. No accessory muscle use. GASTROINTESTINAL: Abdomen soft, non-tender, nondistended. MUSCULOSKELETAL: No cyanosis, or edema. BACK: Nontender without obvious deformity. No CVA tenderness. Procedures Laminectomy A/P Problem List: (1) Lumbar back pain with radiculopathy affecting left lower extremity ICD Code: M54.17 Status: Acute (2) Elevated BP without diagnosis of hypertension ICD Code: R03.0 Status: Acute Assessment and Plan 46-year-old female with Lumbar back pain with radiculopathy affecting left lower extremity Outside MRI Lumbar 01/17/17 which revealed a herniated disc with some nerve root compression and compression on the thecal sac Neurosurgery input appreciated and s/p laminectomy 01/25/17 Continue with TLSO brace PT to treat and eval Pain management accordingly d/c Decadron 4 mg IV every 6 hourly Elevated BP without diagnosis of hypertension-now resolved Continue Vasotec when necessary Now patient is normotensive History of asthma, chronic No exacerbation and treat with DuoNeb when necessary DVT prophylaxis: Bilateral SCDs Maged Ramirez MD January 26, 2017 09:18
[2017-01-26] MEDS: DOCUSATE SODIUM 100 MG CAP PO SCH (09:22)
[2017-01-26] MEDS: SODIUM CHLORIDE 0.9% FLUSH 10 ML FLUSH IV FLUSH SCH (09:26)
[2017-01-26] MEDS ORDERED: KETOROLAC TROMETHAMINE 60 MG/2 ML (IM) VIAL IM ONE (09:45)
[2017-01-26] MEDS ORDERED: PERI8.6T PO (10:02)
--- NOTE | 2017-01-26 10:05 | HHI.DS ---
Discharge Summary Admission Date January 24, 2017 at 17:23 Discharge Date: January 26, 2017 Admitting Diagnosis radiculopathy (1) Lumbar back pain with radiculopathy affecting left lower extremity ICD Code: M54.17 (2) Elevated BP without diagnosis of hypertension ICD Code: R03.0 Procedures Laminectomy Brief History - From Admission 46-year-old female with a history of asthma come to the ED for evaluation of worsening low back pain with radiation to left lower extremity. Patient was recently diagnosed with acute low back pain in November 2016 and denies any trauma , for which she was treated conservatively with muscle relaxant and physical therapy however without any significant improvement. Patient was also treated with Medrol Dosepak x 2 and completed the treatment several day ago without any improvement.She reports increasing LLE pain associated with difficulty with ambulating as well as intermittent urinary incontinence over the past 48HRS. The pain is currently rated 10/10 in intensity. She was sent by her PCP for a MRI on 01/17/17 which revealed a herniated disc with some nerve root compression and compression on the thecal sac. CBC/BMP: 01/24/17 1710 01/25/17 0539 Significant Findings Laboratory Tests Test 01/24/17 01/24/17 01/25/17 17:10 21:17 05:39 Eosinophils (%) (Auto) 4.6 % (0.0-4.0) Eosinophils # (Auto) 0.5 TH/MM3 (0-0.4) Estimat Glomerular Filtration 83 ML/MIN (>89) 88 ML/MIN (>89) Rate Urine Bacteria OCC /hpf (NONE) Urine Mucus FEW /lpf (OCC) Random Glucose 120 MG/DL (74-106) Aspartate Amino Transf 13 U/L (15-37) (AST/SGOT) Imaging Last Impressions Lumbar Spine X-Ray 01/25/17 0000 Signed Impressions: Service Date/Time: Wednesday, January 25, 2017 13:09 - CONCLUSION: Limited image as detailed above. Kevin Brock Jr., MD PE at Discharge GENERAL: NAD and sitting in a chair with TLSO brace in place SKIN: Warm and dry. HEAD: Normocephalic. EYES: No scleral icterus. No injection or drainage. NECK: Supple, trachea midline. No JVD or lymphadenopathy. CARDIOVASCULAR: Regular rate and rhythm without murmurs, gallops, or rubs. RESPIRATORY: Breath sounds equal bilaterally. No accessory muscle use. GASTROINTESTINAL: Abdomen soft, non-tender, nondistended. MUSCULOSKELETAL: No cyanosis, or edema. BACK: Nontender without obvious deformity. No CVA tenderness. Hospital Course Patient admitted with L5 lower extremity radiculopathy for which neurosurgery was consulted, patient was initially treated with IV Decadron and she underwent laminectomy 01/25/17. Pain management was provided accordingly and physical therapy was consulted. DVT prophylaxis was provided. Prior to discharge, patient condition improved and vital remained stable. Pt Condition on Discharge: Stable Discharge Disposition: Discharge Home Discharge Time: <= 30 minutes Discharge Instructions DIET: Follow Instructions for: Heart Healthy Diet Activities you can perform: Regular-No Restrictions Follow up Referrals: Neurosurgery PCP Follow-up - 1 Week New Medications: Hydrocodone-Acetaminophen (Lortab) 10-325 Mg Tab 1 TAB PO Q8HR PRN PAIN #90 Ref 0 TAB Sennosides-Docusate Sodium (Ann-Marie-Colace) 8.6-50 Mg Tab 1 TAB PO BID PRN Constipation #60 Ref 0 TAB Continued Medications: Albuterol 18 GM Inh (Ventolin Hfa 18 GM Inh) 90 Mcg/Act Aer 1 PUFF INH Q4H PRN SHORTNESS OF BREATH #1 Ref 0 INHALER Maged Ramirez MD January 26, 2017 10:04
[2017-02-11] MEDS ORDERED: IBUP800T23 (09:11)
[2017-02-11] MEDS ORDERED: FLUTI44I (09:11)
[2017-02-11] MEDS ORDERED: DICL75TA (09:11)
[2017-02-11] MEDS ORDERED: CYCL1TAB29 (09:11)
[2017-02-11] MEDS ORDERED: TIZA4TAB (09:11)
[2017-02-11] MEDS ORDERED: ALBUAER3 (09:11)
== END 2017-01-26 11:05 | disposition home or self-care (01) | DRG 520 ==
LOC: NEPD 16:38 → NEDA 17:23 → N06A 19:00
PROVIDERS: ADMIT Hospitalist; ATTEND Hospitalist
PROC: 0ST20ZZ Resection of Lumbar Vertebral Disc, Open Approach (ICD-10-PCS; 2017-01-25)
PROC: 00NY0ZZ Release Lumbar Spinal Cord, Open Approach (ICD-10-PCS; principal; 2017-01-25 12:30)
DX: M51.16 Intervertebral disc disorders with radiculopathy, lumbar region (principal); J45.909 Unspecified asthma, uncomplicated; R32 Unspecified urinary incontinence; R03.0 Elevated blood-pressure reading, without diagnosis of hypertension; R20.0 Anesthesia of skin; R53.1 Weakness
CPT/HCPCS: 72020; 76000; 80048; 80053; 81001; 85025; 85610; 85730; 86850; 86900; 86901; 93005; 94150; 96374; 96375; J0131; J0690; J1030; J1100; J1170; J1580; J1885; J2060; J2250; J2270; J2370; J2405; J2710; J3010; J3370; J3480; J7050; J7120; J8501; L0627